=== PATIENT | female | born 1980 | race Caucasian/White ===

== ENCOUNTER 2016-09-01 19:07 | Inpatient (IN) | payer BC ==
[2016-09-01] MEDS ORDERED: HYDROmorphone 0.5 MG/0.5 ML Syringe IVPUSH ONE (20:38)
--- NOTE | 2016-09-01 20:42 | EDM.PDOC ---
[id number]: ABDOMINAL PAIN Time Seen by Provider: 09/01/16 20:30 Source of Information: Reports: Patient History Limitations: Reports: No Limitations - History of Present Illness INITIAL COMMENTS - FREE TEXT/NARRATIVE: 36-year-old healthy female developed abdominal pain at 10:30 this morning, starting in the left upper quadrant, expanding to the right lower quadrant and periumbilical area. Nausea but no vomiting. No diarrhea. Some pain radiating to the right flank which waxes and wanes no urinary symptoms. She is on Ortho Tri- Cyclen and is 10 days away from her normal menstrual cycle, she has not missed any pills. No fevers or chills. No trauma. She has never had pain like this before and has not had any abdominal surgeries in the past. She describes her pain as a "10 out of 10". Onset: Gradual Duration: Hour(s): (10 hours) Location: Reports: Abdomen Quality: Reports: Ache, Pressure Severity: Moderate Worsens with: Reports: Movement Associated Symptoms: Reports: Loss of Appetite, Nausea/Vomiting. Denies: Confusion, Fever/Chills, Headaches, Shortness of Breath Middle Abdomen Pain Score (Numeric/FACES): 10 - Related Data Allergies Allergy/AdvReac Type Severity Reaction Status Date / Time Dairy Products Allergy Diarrhea Verified 09/02/16 00:48 gluten Allergy Muscle Verified 09/02/16 00:48 Aches Penicillins Allergy Cannot Verified 09/01/16 20:30 Remember Home Meds: Home Meds Amphetamine/Dextroamphetamine [Adderall] 20 mg PO BID 09/01/16 [History] DULoxetine [Cymbalta] 60 mg PO DAILY 09/01/16 [History] Norgestimate-Ethinyl Estradiol [Ortho Tri-Cyclen 28 Tablet] 1 tab PO DAILY 09/01 [History] Thyroid,Pork [Westhroid-P] 32.5 mg PO DAILY 09/01/16 [History] Fluticasone Propionate [Flonase Allergy Relief] 1 spray NASBOTH DAILY 09/02/16 [ History] Past Medical History Immunologic History: Reports: Other (See Below) Other Immunologic History: lymes three months ago Social & Family History - Tobacco Use Smoking Status *Q: Never Smoker - Caffeine Use Caffeine Use: Reports: Coffee, Soda - Recreational Drug Use Recreational Drug Use: No ED ROS GENERAL - Review of Systems Review Of Systems: See Below Constitutional: Denies: Fever, Chills HEENT: Reports: No Symptoms Respiratory: Denies: Shortness of Breath Cardiovascular: Denies: Chest Pain GI/Abdominal: Reports: Abdominal Pain. Denies: Diarrhea : Reports: No Symptoms Skin: Reports: No Symptoms Neurological: Reports: No Symptoms. Denies: Headache Psychiatric: Reports: No Symptoms ED EXAM, GI/ABD - Physical Exam Exam: See Below Exam Limited By: No Limitations General Appearance: Alert, No Apparent Distress Eyes: Bilateral: Normal Appearance Respiratory/Chest: No Respiratory Distress, Lungs Clear Cardiovascular: Regular Rate, Rhythm GI/Abdominal: Soft, Guarding (Patient is very tender with some guarding in the left upper quadrant, right lower quadrant and just below the umbilicus) Extremities: Normal Inspection Neurological: Alert, Oriented Psychiatric: Normal Affect, Normal Mood Skin Exam: Warm Course - Vital Signs Last Recorded V/S: Last Vital Signs Temp 98.5 F 09/02/16 00:27 Pulse 73 09/02/16 00:27 Resp 14 09/02/16 00:27 BP 134/73 09/02/16 00:27 Pulse Ox 100 09/02/16 01:29 - Orders/Labs/Meds Orders: Active Orders 24 hr Category Date Time Status Abdomen Pelvis w Cont [CT] Stat Exams 09/01/16 21:23 Taken Sodium Chloride 0.9% [Saline Flush] Med 09/01/16 20:38 Active 10 ml FLUSH ASDIRECTED PRN Sodium Chloride 0.9% [Saline Flush] Med 09/01/16 21:50 Active 10 ml FLUSH ONETIME PRN Saline Lock Insert [OM.PC] Routine Oth 09/01/16 20:38 Ordered Medication Orders Chlorhexidine Gluconate (Hibiclens) 1 ml TOP ONETIME ONE Stop: 09/02/16 05:01 Hydromorphone HCl (Dilaudid Safety Administrator 15 Mg In Ns 30 Ml) 0 mg IV ASDIRECTED PRN; Protocol PRN Reason: Pain Last Admin: 09/02/16 01:06 Dose: 15 mg Dextrose/Lactated Ringer's (Dextrose 5%-Lactated Ringers) 1,000 mls @ 150 mls/ hr IV ASDIRECTED AKBAR Cefoxitin Sodium 2 gm/ Sodium (Chloride) 50 mls @ 100 mls/hr IV Q6H [facility] Last Admin: 09/02/16 01:07 Dose: 100 mls/hr Naloxone HCl (Narcan) 0.4 mg IVPUSH Q2M PRN PRN Reason: Respiratory Distress Sodium Chloride (Saline Flush) 10 ml FLUSH ASDIRECTED PRN PRN Reason: Keep Vein Open Last Admin: 09/01/16 20:55 Dose: 10 ml Admin: 09/01/16 20:45 Dose: 10 ml Sodium Chloride (Saline Flush) 10 ml FLUSH ONETIME PRN PRN Reason: PER RADIOLOGY PROTOCOL Last Admin: 09/01/16 22:01 Dose: 10 ml Labs: Laboratory Tests 09/01/16 09/01/16 09/01/16 Range/Units 20:48 20:48 20:48 WBC 16.5 H (4.5-11.0) K/uL RBC 4.53 (3.30-5.50) M/uL Hgb 14.6 (12.0-15.0) g/dL Hct 43.2 (36.0-48.0) % MCV 95 (80-98) fL MCH 32 H (27-31) pg MCHC 34 (32-36) % Plt Count 215 (150-400) K/uL Neut % (Auto) 89 H (36-66) % Lymph % (Auto) 4 L (24-44) % [place] % (Auto) 7 H (2-6) % Eos % (Auto) 0 L (2-4) % Baso % (Auto) 0 (0-1) % Sodium 135 L (140-148) mmol/L Potassium 3.6 (3.6-5.2) mmol/L Chloride 99 L (100-108) mmol/L Carbon Dioxide 32 (21-32) mmol/L Anion Gap 7.6 (5.0-14.0) mmol/L BUN 12 (7-18) mg/dL Creatinine 0.6 (0.6-1.0) mg/dL Est Cr Clr Drug Dosing 116.64 mL/min Estimated GFR (MDRD) > 60 (>60) Glucose 136 H (74-106) mg/dL Calcium 8.5 (8.5-10.1) mg/dL Total Bilirubin 0.2 (0.2-1.0) mg/dL AST 26 (15-37) U/L ALT 39 (12-78) U/L Alkaline Phosphatase 46 (46-116) U/L Total Protein 6.6 (6.4-8.2) g/dL Albumin 3.2 L (3.4-5.0) g/dL Globulin 3.4 (2.3-3.5) g/dL Albumin/Globulin Ratio 0.9 L (1.2-2.2) Amylase 44 (25-115) U/L Lipase 94 (73-393) U/L Urine Color Urine Appearance Urine pH (4.5-8.0) Ur Specific [place] (1.008-1.030) Urine Protein (NEGATIVE) mg/dL Urine Glucose (UA) (NEGATIVE) mg/dL Urine Ketones (NEGATIVE) mg/dL Urine Occult Blood (NEGATIVE) Urine Nitrite (NEGATIVE) Urine Bilirubin (NEGATIVE) Urine Urobilinogen (NORMAL) mg/dL Ur Leukocyte Esterase (NEGATIVE) Urine RBC (0-5) Urine WBC (0-5) Ur Epithelial Cells Amorphous Sediment Urine Bacteria Urine Mucus Urine HCG, Qual 09/01/16 09/01/16 Range/Units 21:06 21:06 WBC (4.5-11.0) K/uL RBC (3.30-5.50) M/uL Hgb (12.0-15.0) g/dL Hct (36.0-48.0) % MCV (80-98) fL MCH (27-31) pg MCHC (32-36) % Plt Count (150-400) K/uL Neut % (Auto) (36-66) % Lymph % (Auto) (24-44) % [place] % (Auto) (2-6) % Eos % (Auto) (2-4) % Baso % (Auto) (0-1) % Sodium (140-148) mmol/L Potassium (3.6-5.2) mmol/L Chloride (100-108) mmol/L Carbon Dioxide (21-32) mmol/L Anion Gap (5.0-14.0) mmol/L BUN (7-18) mg/dL Creatinine (0.6-1.0) mg/dL Est Cr Clr Drug Dosing mL/min Estimated GFR (MDRD) (>60) Glucose (74-106) mg/dL Calcium (8.5-10.1) mg/dL Total Bilirubin (0.2-1.0) mg/dL AST (15-37) U/L ALT (12-78) U/L Alkaline Phosphatase (46-116) U/L Total Protein (6.4-8.2) g/dL Albumin (3.4-5.0) g/dL Globulin (2.3-3.5) g/dL Albumin/Globulin Ratio (1.2-2.2) Amylase (25-115) U/L Lipase (73-393) U/L Urine Color Yellow Urine Appearance Cloudy Urine pH 8.0 (4.5-8.0) Ur Specific [place] 1.015 (1.008-1.030) Urine Protein Negative (NEGATIVE) mg/dL Urine Glucose (UA) Normal (NEGATIVE) mg/dL Urine Ketones Negative (NEGATIVE) mg/dL Urine Occult Blood Negative (NEGATIVE) Urine Nitrite Negative (NEGATIVE) Urine Bilirubin Negative (NEGATIVE) Urine Urobilinogen Normal (NORMAL) mg/dL Ur Leukocyte Esterase Negative (NEGATIVE) Urine RBC Not seen (0-5) Urine WBC 0-5 (0-5) Ur Epithelial Cells Few Amorphous Sediment Packed Urine Bacteria Many Urine Mucus Not seen Urine HCG, Qual Negative Meds: Medications Generic Name Dose Route Start Last Admin Trade Name Freq PRN Reason Stop Dose Admin Chlorhexidine Gluconate 1 ml 09/02/16 05:00 Hibiclens TOP 09/02/16 05:01 ONETIME ONE Hydromorphone HCl 0 mg 09/02/16 00:24 09/02/16 01:06 Dilaudid Safety Administrator 15 Mg In Ns 30 Ml IV 15 mg ASDIRECTED PRN Administration Pain Protocol Dextrose/Lactated Ringer's 1,000 mls @ 150 mls/hr 09/02/16 00:30 Dextrose 5%-Lactated Ringers IV ASDIRECTED AKBAR Cefoxitin Sodium 2 gm/ Sodium 50 mls @ 100 mls/hr 09/02/16 00:30 09/02/16 01: 07 Chloride IV 100 mls/hr Q6H AKBAR Administration Naloxone HCl 0.4 mg 09/02/16 00:24 Narcan IVPUSH Q2M PRN Respiratory Distress Sodium Chloride 10 ml 09/01/16 20:38 09/01/16 20:55 Saline Flush FLUSH 10 ml ASDIRECTED PRN Administration Keep Vein Open Sodium Chloride 10 ml 07/03/17 21:50 09/01/16 22:01 Saline Flush FLUSH 10 ml ONETIME PRN Administration PER RADIOLOGY PROTOCOL Discontinued Medications Generic Name Dose Route Start Last Admin Trade Name Fernandez PRN Reason Stop Dose Admin Chlorhexidine Gluconate 1 ml 09/02/16 02:09 Hibiclens TOP 09/02/16 02:10 ONETIME ONE Hydromorphone HCl 0.5 mg 09/01/16 20:38 09/01/16 20:51 Dilaudid IVPUSH 09/01/16 20:39 0.5 mg ONETIME ONE Administration Sodium Chloride 70 mls @ 3 mls/sec 09/01/16 21:50 09/01/16 22:01 Normal Saline IV 09/01/16 21:51 3 mls/sec ONETIME ONE Administration Iopamidol 93 ml 09/01/16 21:50 09/01/16 22:01 Isovue-300 (61%) IV 09/01/16 21:51 100 ml . DIRECTED PRN Administration RADIOLOGY EXAM - Re-Assessments/Exams Free Text/Narrative Re-Assessment/Exam: 09/01/16 20:41 Saline lock will be placed, 0.5 mg of Dilaudid given IV. Urine will be obtained for a UA and urine . CBC, CMP, amylase and lipase were obtained. 09/02/16 02:38 White count was elevated at 16.5, Restoril labs were reassuring. A CT scan confirmed appendicitis. She was admitted under the service of Dr. Booth, surgery , with anticipation of a 6 AM appendectomy. She was given cefoxitin 2 g and placed on a ADULT NURSE PRACTITIONER for pain control, will be kept nothing by mouth after midnight. Departure - Departure Time of Disposition: 00:20 Disposition: Admitted As Inpatient 66 Condition: Fair Clinical Impression: Abdominal pain Qualifiers: Abdominal location: lower abdomen, unspecified Qualified Code(s): R10.30 - Lower abdominal pain, unspecified Appendicitis Qualifiers: Appendicitis type: acute appendicitis Acute appendicitis type: with localized peritonitis Qualified Code(s): K35.3 - Acute appendicitis with localized peritonitis - Discharge Information - My Orders Last 24 Hours: My Active Orders 09/01/16 20:38 Sodium Chloride 0.9% [Saline Flush] 10 ml FLUSH ASDIRECTED PRN Saline Lock Insert [OM.PC] Routine 09/01/16 21:23 Abdomen Pelvis w Cont [CT] Stat 09/01/16 21:50 Sodium Chloride 0.9% [Saline Flush] 10 ml FLUSH ONETIME PRN - Assessment/Plan Last 24 Hours: My Active Orders 09/01/16 20:38 Sodium Chloride 0.9% [Saline Flush] 10 ml FLUSH ASDIRECTED PRN Saline Lock Insert [OM.PC] Routine 09/01/16 21:23 Abdomen Pelvis w Cont [CT] Stat 09/01/16 21:50 Sodium Chloride 0.9% [Saline Flush] 10 ml FLUSH ONETIME PRN
[2016-09-01] MEDS: Sodium Chloride 0.9% 10 ML Syringe FLUSH PRN ×2 (20:45→20:55)
[2016-09-01] MEDS ORDERED: Iopamidol 612 MG/ML 100 ML Bottle IV PRN (21:50)
[2016-09-01] MEDS ORDERED: Sodium Chloride 0.9% 10 ML Syringe FLUSH PRN (21:50)
[2016-09-02] MEDS ORDERED: HYDROmorphone/Normal Saline 15 MG/30 ML PCA IV PRN (00:24)
[2016-09-02] MEDS ORDERED: Naloxone 0.4 MG/ML SDV IVPUSH PRN ×2 (00:24→07:22)
[2016-09-02] MEDS ORDERED: Dextrose 5%-Lactated Ringers 1,000 ML IV SCH (00:30)
[2016-09-02] MEDS: cefOXitin 2 GM in Sodium Chloride 0.9% 50 ML IV SCH ×5 (01:07→17:58)
[2016-09-02] MEDS ORDERED: CHLORHEXIDINE GLUCONATE 4% TOP ONE ×2 (02:09→05:00)
[2016-09-02] MEDS ORDERED: Bupivacaine 0.5%/EPINEPHrine 1:200,000 50 ML MDV ONE (05:40)
[2016-09-02] MEDS ORDERED: fentaNYL 250 MCG/5 ML SDV ONE (05:59)
[2016-09-02] MEDS ORDERED: Dexamethasone 4 MG/ML SDV ONE (06:00)
[2016-09-02] MEDS ORDERED: Propofol 200 MG/20 ML SDV ONE (06:00)
[2016-09-02] MEDS ORDERED: Rocuronium 50 MG/5 ML Vial ONE (06:00)
[2016-09-02] MEDS ORDERED: Succinylcholine/Normal Saline 200 MG/10 ML Syringe ONE (06:00)
[2016-09-02] MEDS ORDERED: Ondansetron 4 MG/2 ML SDV ONE (06:00)
[2016-09-02] MEDS ORDERED: Neostigmine Methylsulfate 1 MG/ML 5 ML Syringe ONE (06:00)
[2016-09-02] MEDS ORDERED: cefOXitin 2 GM Vial ONE (06:14)
[2016-09-02] MEDS ORDERED: Lactated Ringers 1,000 ML ONE (06:18)
[2016-09-02] MEDS ORDERED: hydrOXYzine HCl 50 MG/ML SDV IM ONE (08:00)
[2016-09-02] MEDS ORDERED: Ondansetron 4 MG/2 ML SDV IV PRN (08:10)
[2016-09-02] MEDS ORDERED: Meperidine PF 100 MG/ML Syringe IM ONE (08:15)
[2016-09-02] MEDS ORDERED: Meperidine PF 100 MG/ML Syringe ONE (08:17)
[2016-09-02] MEDS ORDERED: hydrOXYzine HCl 50 MG/ML SDV IM PRN (12:00)
[2016-09-02] MEDS: Docusate Sodium 100 MG Cap PO SCH ×2 (13:02→19:59)
[2016-09-02] MEDS: Cyclobenzaprine 10 MG Tab PO SCH (19:57)
[2016-09-02] MEDS: Acetaminophen/oxyCODONE 325-5 MG Tab PO PRN (19:57)
[2016-09-02] MEDS: Dextrose 5%-Lactated Ringers 1,000 ML IV SCH (19:59)
[2016-09-03] MEDS: Acetaminophen/oxyCODONE 325-5 MG Tab PO PRN ×6 (00:11→21:09)
[2016-09-03] MEDS: cefOXitin 2 GM in Sodium Chloride 0.9% 50 ML IV SCH ×2 (00:11→05:52)
[2016-09-03] MEDS: Cyclobenzaprine 10 MG Tab PO SCH ×4 (02:17→20:16)
[2016-09-03] MEDS: Dextrose 5%-Lactated Ringers 1,000 ML IV SCH (04:33)
[2016-09-03] MEDS ORDERED: Ondansetron 4 MG Tab.DIS PO PRN (07:56)
[2016-09-03] MEDS: Docusate Sodium 100 MG Cap PO SCH ×2 (08:20→20:16)
[2016-09-03] MEDS: Doxycycline 100 MG Cap PO SCH ×2 (08:20→20:16)
--- NOTE | 2016-09-03 10:07 | PCM.SURGPN ---
- General Info Date of Service: 09/03/16 Date of Surgery/Procedure: 09/02/16 POD#: 1 Functional Status: Reports: pain controlled, tolerating diet - Review of Systems General: Reports: No Symptoms Pulmonary: Reports: no symptoms Cardiovascular: Reports: No Symptoms Gastrointestinal: Reports: Abdominal pain (with movement or coughing) Systems Review Comment:: Patient is POD#1. She had a maximum temperature of 100.1 overnight and now a temperature of 100.8 this morning. Her pain has been well controlled with Flexeril and Percocet. The patient rates her abdominal pain a 3/10 and with movement or coughing a 10/10. Her oral intake was 2580mL and she has voided 1500mL of urine. JOHNATHON drain with 50mL of output. The patient has not had a BM but denies any constipation or abdominal distension. She voices no complaints at this time. - Patient Data Vitals - most recent: Last Vital Signs Temp 38.2 C H 09/03/16 07:11 Pulse 74 09/03/16 07:11 Resp 16 09/03/16 07:11 BP 121/67 09/03/16 07:11 Pulse Ox 96 09/03/16 07:11 Weight - most recent: 62.006 kg I&O - last 24 hours: Intake & Output 09/02/16 09/03/16 09/03/16 22:59 06:59 14:59 Intake Total 2207 1950 955 Output Total 500 800 Balance 1707 1950 155 Hieu Results last 24 hrs: Microbiology 09/02/16 07:27 Gram Stain - Final Appendix - Abscess Wound Culture - Preliminary NO GROWTH AFTER 1 DAY Anaerobic Culture - Preliminary NO GROWTH AFTER 1 DAY - Exam Wound/Incisions: dressing dry and intact General: alert, oriented Neck: supple Lungs: Clear to auscultation, Normal respiratory effort Cardiovascular: Regular Rate, Regular Rhythm Abdomen: bowel sounds present, soft, other (JOHNATHON drain in place with serosanginous output.) Extremities: no edema Skin: warm, dry, intact - Problem List Review Problem List Initiated/Reviewed/Updated: Yes - My Orders Last 24 Hours: Active Orders 24 hr Category Date Time Status May Shower [RC] ASDIRECTED Care 09/03/16 07:54 Active Regular Diet [DIET] Diet 09/02/16 Lunch Active Acetaminophen/oxyCODONE [Percocet 325-5 MG] Med 09/02/16 19:38 Active 1 - 2 tab PO Q4H PRN Cyclobenzaprine [Flexeril] Med 09/02/16 19:45 Active 10 mg PO Q6H Doxycycline [Vibramycin] Med 09/03/16 09:00 Active 100 mg PO BID Ondansetron [Zofran ODT] Med 09/03/16 07:56 Active 4 mg PO Q4H PRN hydrOXYzine HCl [Vistaril] Med 09/02/16 12:00 Active 100 mg IM Q4H PRN Remove Dressing [OM.PC] Routine Oth 09/03/16 07:55 Ordered - Assessment Assessment (Free Text/Narrative):: 1. Diagnostic laparoscopy with partial cecectomy along with removal of appendix and drainage of periappendiceal abscess. 2. Microperforation of appendicitis with extensive inflammation/necrosis into cecal base 3. Pericolonic appendiceal abscess. - Plan Plan (Free Text/Narrative):: 1. Saline lock IV 2. May shower 3. Encouraged the use of incentive spirometer 4. Plan for discharge home tomorrow morning
[2016-09-04] MEDS: Cyclobenzaprine 10 MG Tab PO SCH ×2 (01:54→07:11)
[2016-09-04] MEDS: Acetaminophen/oxyCODONE 325-5 MG Tab PO PRN ×2 (01:55→07:11)
[2016-09-04 07:07] VITALS: BP 148/89
[2016-09-04] MEDS ORDERED: LORazepam 1 MG Tab PO ONE (07:16)
[2016-09-04] MEDS: Doxycycline 100 MG Cap PO SCH (08:27)
[2016-09-04] MEDS: Docusate Sodium 100 MG Cap PO SCH (08:28)
--- NOTE | 2016-09-05 14:18 | DISCH ---
ADMISSION DIAGNOSES: Abdominal pain, lyme's disease three months ago, oral contraception, hypothyroidism, attention deficit hyperactivity disorder, and depression. DISCHARGE DIAGNOSES: Diagnostic laparoscopy with partial cystectomy along with removal of appendix and drainage of periappendiceal abscess for microperforation of appendicitis with extensive inflammation/necrosis into the cecal base and pericolonic appendiceal abscess. HISTORY: Sofy Winn is a 36-year-old female who presented to the emergency room on 09/01/2016 at 2030 hours with left upper quadrant pain extending to the right lower quadrant, after preoperative evaluation discussion of possible risks and possible complications, she wished to proceed with surgical procedure. HOSPITAL COURSE: Sofy had her surgical procedure on 09/02/2016, she had no operative complications. On postop day #1, she was started on oral pain medication and Flexeril as well as doxycycline 100 mg twice daily. Her activity was good. She tolerated her diet well. She did remain afebrile with the exception of one temperature that elevated to 100.1, but after using incentive spirometer, it did go down to 98.7. She was able to be discharged on 09/04/2016, without any complications. PHYSICAL EXAMINATION: GENERAL: Sofy is a 36-year-old female. VITAL SIGNS: Height 5 feet 4.96 inches. Weight is 136 pounds. TPR is 97.4, 73, 17, and blood pressure 148/89. HEENT: Negative. NECK: Supple. HEART: Regular rate and rhythm. LUNGS: Clear. ABDOMEN: Incisions look good. Healing well. 4x4 over JOHNATHON drain site. Abdominal binder is on. EXTREMITIES: Without peripheral edema. DISPOSITION: Discharged to home. CONDITION: Stable and improving. FOLLOWUP APPOINTMENT: With primary care provider, Jacinta Larson MD, [facility] for [facility] when she returns home, she should be seen in around 10 days. NEW PRESCRIPTIONS: 1. Percocet 5/325 mg 1 to 2 q.4 hours p.r.n. pain #50. 2. Flexeril 10 mg q.6 hours p.r.n. muscle spasms #30. 3. Doxycycline 100 mg oral twice daily #20. 4. She is to resume her home medications of:. a. Cymbalta 60 mg oral daily. b. Flonase 1 spray in each nostril daily. c. Adderall 20 mg oral twice daily. d. Ortho Tri-Cyclen 28-day 1 tablet daily. DIET AFTER DISCHARGE: Usual diet as tolerated. Drink 8 to 10 glasses of water daily. Lifting: No lifting greater than 10 pounds for 2 weeks. ACTIVITY: Walk short distances 6 times a day. Gradually increasing as tolerated. Driving: Do not drive while on pain medications. Shower/bathing: May shower. Notify provider if any fever, increased pain, nausea, or vomiting. Keep site clean and dry. Wear abdominal binder for 2 weeks and then as tolerated. Use incentive spirometer 10 times every hour while awake.
--- NOTE | 2016-09-05 14:27 | OR ---
DATE OF PROCEDURE: 09/02/2016 PREOPERATIVE DIAGNOSIS: Acute appendicitis. POSTOPERATIVE DIAGNOSES: 1. Acute appendicitis associated with microperforation and extensive inflammation, and possible necrosis onto cecal base. 2. Pericolonic abscess. OPERATIVE PROCEDURES: Diagnostic laparoscopy with; 1. Partial cecectomy along with removal of the overlying appendix (54395). 2. Drainage of pericolonic abscess ([id number]). ANESTHESIA: General. INDICATION FOR PROCEDURE: This 36-year-old female was admitted overnight with what appeared to be an acute appendicitis. The patient was admitted for initial IV antibiotics and hydration, and is undergoing laparoscopy or if necessary laparotomy at this time. Potential risks including bleeding, infection, leaks from any GI tract closures such as the appendiceal stump, possibility of a more extensive procedure beyond an appendectomy might be required based on operative findings, were all reviewed along with the remote possibility of cardiopulmonary, septic, or hemorrhagic complications leading to , and the patient wishes to proceed. DETAILS OF PROCEDURE: The patient was taken to the operating room and placed in a supine position. After general endotracheal anesthesia was induced, a Kinsey catheter was inserted and the abdomen was prepped and draped. Three fingerbreadths superior to the left of the umbilicus, a transverse incision was made, and the peritoneal cavity entered under direct vision with an Optiview trocar. The peritoneal cavity was inflated to 15 mmHg pressure with CO2. Laparoscope was reinserted. No underlying trocar insertion site injuries were seen. Following this, 12-mm trocars were placed in the left lower quadrant as well as right upper quadrant, and the lower abdomen was examined. The patient was noted to have a vail and somewhat purulent fluid collection along the right pericolic gutter consistent with a pericolonic early abscess formation. This was evacuated and cultures were sent. Initial Gram stain showed white cells without obvious bacteria. As one dissected downward toward the cecal base, the appendix was identified. This was mobilized upward and the mesentery at the junction of the cecum and appendix was bluntly opened. The extent of inflammation and possible area of necrosis extended somewhat onto the cecum. Given this, the level of resection at this point appeared to be appropriate and somewhat onto the cecum, rather than the appendiceal cecal junction itself. Once this was well developed in terms of dissection, the initial firing with the KEM purple load was then accomplished across the lower cecum. One additional firing of purple load was then required to provide a complete transection. Both staple lines were inspected at this point and found to be intact. The mesentery of the adjacent resected cecum and appendix was then taken down with Harmonic scalpel, and the specimen placed into a specimen bag and retrieved through the left lower quadrant site without any direct contact with the soft tissues during that process. At this point, the area of dissection was inspected. The degree of inflammation that involved the cecal base led one to feel that some fibrin sealant might be helpful in terms of limiting chances of any leaks in that area. So, 4 mL of fibrin sealant was placed across the cecal base. At that point, a 5-mm trocar was placed in the right flank and through that a 10-Dominican Skyler-Farrell drain was then placed and positioned along the area of the cecal resection line and from there into the pelvis. At that point, no further problems were noted. The remaining trocars were removed. The peritoneal cavity was deflated. The fascia at the trocar sites was closed with 0 Vicryl stitch and the skin with a 4-0 Vicryl skin stitch. Dressing was applied. The patient was taken to the recovery room in satisfactory condition. There were no evident complications. Delbert Booth MD /[id number]
== END 2016-09-04 09:30 | disposition home or self-care (01) | DRG 221 ==
LOC: JP.ED 19:07 → UNDOADMIN 23:26 → JP.2SS 23:26
PROVIDERS: ADMIT Surgery; ATTEND Surgery
PROC: 0W9G4ZX Drainage of Peritoneal Cavity, Percutaneous Endoscopic Approach, Diagnostic (ICD-10-PCS; principal; 2016-09-02)
PROC: 0DBH4ZZ Excision of Cecum, Percutaneous Endoscopic Approach (ICD-10-PCS; principal; 2016-09-02)
PROC: 0DTJ4ZZ Resection of Appendix, Percutaneous Endoscopic Approach (ICD-10-PCS; principal; 2016-09-02)
DX: K35.3 Acute appendicitis with localized peritonitis (principal); K63.0 Abscess of intestine; Z88.0 Allergy status to penicillin; Z91.011 Allergy to milk products; Z91.018 Allergy to other foods; F90.9 Attention-deficit hyperactivity disorder, unspecified type
CPT/HCPCS: 36415; 74177; 80053; 81001; 81025; 82150; 83690; 85025; 87070; 87075; 87077; 87186; 87205; 88304; 94762; 96374; 99285-25; A9270-GY; J0694; J1100; J1170; J2175; J2405; J2704; J3010; J3410; J7030; J7042; J7050; J7120; Q9967